=== PATIENT | female | born 1990 | race Two or more races ===

== ENCOUNTER 2025-08-20 03:36 | Emergency (ER) | payer SELFPAY ==
[2025-08-20 03:39] VITALS: BP 135/94; PULSE 98; RESP 18; TEMP 36.8; O2SAT 98
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
[2025-08-20 03:45] VITALS: BMI 24.7
== END 2025-08-20 03:56 ==
LOC: SERX 03:54
PROVIDERS: Emergency Provider Emergency Medicine
DX: S20.219A Contusion of unspecified front wall of thorax, initial encounter (principal); V89.2XXA Person injured in unspecified motor-vehicle accident, traffic, initial encounter
CPT/HCPCS: 99281